=== PATIENT | female | born 1960 | race Caucasian/White ===

== ENCOUNTER 2016-08-17 21:04 | Inpatient (IN) | payer OTHER ==
[~2016-08-17] VITALS: Ht 170.2 cm; Wt 74.6 kg
[~2016-08-17 21:04] MED LIST: BENZ1LOZ60 MM; IBUP800T28 PO; LETR2.5T4 PO; LORA2TAB PO; ONDA-53 PO; OXYC-465 PO; OXYC20TA55 PO; PANT20TA2 PO; [UNRECOGNIZED DRUG - OTHER]; [UNRECOGNIZED DRUG - OTHER] PO
[2016-08-17 21:35] VITALS: BP 114/75; PULSE 101; RESP 22; O2SAT 100
--- NOTE | 2016-08-17 21:54 | ED.REPORT ---
HPI-Fever Date of Service Aug 17, 2016 ED Provider: Carmelo Bryant DO 56 year old female with a history of breast cancer with mets to bones presents to the ER accompanied by her complaining of fever, high of 101F measured at home. Patient denies , vomiting, diarrhea, and dysuria. She also reports that she recently fell and broke her left humerus, and is scheduled for surgery at on 08/21/16. Currently on both radiation and chemotherapy treatments. She does have a mild cough. Nursing Notes Stated Complaint: FEVER,CANCER PATIENT Chief Complaint: General Complaint Nursing Notes Reviewed: Yes Allergies: Uncoded Allergies: STEROID (Allergy, Severe, edema to throat, 08/17/16) Scheduled ([kisquali]) 600 MG PO DAILY take 600mg tab daily for 21 days of 28 days Letrozole (Letrozole) 2.5 Mg Tablet 2.5 MG PO DAILY Oxycodone ER (Oxycontin) 20 Mg Tab.er.12h 20 MG PO TID Pantoprazole DR (Pantoprazole DR) 20 Mg Tablet.dr 20 MG PO BID Scheduled PRN Benzocaine/Menthol (Cepacol Sore Throat Lozenge) 1 Each Lozenge 1 EACH MM DIRECTED PRN PRN sore throat Lorazepam (Lorazepam) 2 Mg Tablet 2 MG PO HS PRN PRN For Insomnia Ondansetron (Ondansetron) 4 Mg Tablet 4 MG PO DAILY PRN PRN For Nausea/Vomiting oxyCODONE-Acetaminophen 7.5-325 mg (oxyCODONE-Acetaminophen 7.5-325 mg) 1 Each Tablet 1-2 TAB PO Q4H PRN PRN For Pain General Time Seen by MD: 21:54 Chief Complaint Fever currently Hx Obtained From: Patient Arrived By: Walk-in Past Medical History Past Medical History Left breast cancer with mets to bone Anxiety History of kidney stones Past Surgical History Left mastectomy Smoking History Current Every Day Smoker, Light Tobacco Smoker Social History Alcohol Use: Denies alcohol use Drug Use: Denies drug use Other Social History: Good social support Review of Systems Constitutional: Reports: Fever Respiratory: Denies: Non-productive cough, Shortness of breath Cardiovascular: Denies: Chest pain GI: Denies: Abdominal pain, Diarrhea, Nausea, Vomiting Complete sys rev & neg: except as marked. Physical Exam Initial Vital Signs Vital Signs (First) Date Time Temp Pulse Resp B/P Pulse Ox O2 Delivery O2 Flow Rate FiO2 08/17/16 21:35 36.9 101 22 114/75 100 Room Air Initial VS: Reviewed Head / Eyes: Atraumatic, Normocephalic Abdomen / GI: Soft, Non-tender, No guarding, No rebound, No distention Psychiatric: Mood/affect normal, Behavior normal, Normal thought content General/Constitutional: Awake, Alert, Well developed Neck: Supple, No meningismus, Full range of motion, No adenopathy, No swelling , Non-tender, No masses Respiratory / Chest: No respiratory distress, No wheezing, No retractions, No stridor Rales / Rhonchi: Positive: Rales R up to 1/3 Breast: Negative: Erythema L, Erythema R Cardiovascular: Regular rhythm, No murmurs, No rubs Heart Rate / Rhythm: Positive: Tachycardia Skin: Warm, Intact Color / Condition: Positive: Diaphoresis present Neurologic: Oriented X3, Speech NL, No motor deficits, No sensory deficits Interpretation & Diagnostics Lab Results Interpretation Result Diagram: 08/18/16 0620 08/18/16 0620 Test 08/17/16 22:15 08/17/16 22:45 Lactic Acid Level 1.5mmol/L (0.4-2.0) Procalcitonin 0.09ng/mL (0.00-0.08) X-Ray Chest Interpretation Chest Xray Interpretation: Opacity in the right upper chest. View: AP & lat Interpretation / Wet Read by: Wet read ED physician Re-Eval/Medical Decision Med Decision/Clinical Course This is a very pleasant 56-year-old female who unfortunately suffering with metastatic breast cancer. She has undergone extensive radiation as well as oral chemotherapy. Today she developed a fever of 101. So states symptoms including severe bone pain and a cough. On examination she was tachycardic and mildly tachypneic. She was mildly ill in appearance. Skin was reassuring without evidence of cellulitis. Neck was supple without evidence of meningitis. She does have rales in the right upper lobe. Remainder of her exam was normal. Abdomen was soft and nontender. White blood cell count is reassuring without evidence of neutropenia. Pro-calcitonin was mildly elevated. Chest x-ray shows no opacity in the right upper lobe. Evidently she has prior radiation scarring. However she certainly has signs and symptoms consistent with pneumonia. Taking into account her comorbidities we will treat this as healthcare associated pneumonia. IV Zosyn, levofloxacin will be ordered. Plan for hospital admission for follow-up on the blood cultures and clinical progression and pain control. Source of Hx: Old records Re-Evaluation/Progress #1: Time of Eval: 00:12 Re-Evaluation/Progress Note: Discussed lab and imaging results and need for admission. Patient is amenable to the plan. All other questions addressed. Re-Evaluation/Progress #2: Time of Eval: 01:59 Re-Evaluation/Progress Note: Patient is coughing. Discussed need for transfer to [facility]. Patient agrees to the plan pending approval by her oncologist, Dr. Esparza. Re-Evaluation/Progress #3: Time of Eval: 02:13 Re-Evaluation/Progress Note: Informed patient that a hospital bed has become available. She is amenable to the plan for admission. All other questions addressed. Counseled Regarding: Diagnosis, Lab results, Need for admission Discharge & Departure Impression: Primary Impression: Pneumonia Pneumonia type: due to unspecified organism Laterality: right Lung location : upper lobe of lung Qualified Code: J18.1 - Lobar pneumonia, unspecified organism Additional Impression: Breast cancer metastasized to bone Laterality: left Qualified Code: C50.912 - Malignant neoplasm of unspecified site of left female breast Disposition: ADMITTED TO HOSPITAL Discharge Condition All VS Reviewed: Yes Condition: Stable Referrals: Shaina Napier MD (PCP) Long Esparza MD Attestation Portions of this note were transcribed by Radha Goodman. I, Dr. Bryant, personally performed the history, physical exam and medical decision-making; I reviewed and confirmed the accuracy of the information in the transcribed note. Signed by: Jai Harrell, 08/17/2016 and 02:14 copies to: Long Esparza MD; Shaina Napier MD, Todd P DO Aug 17, 2016 21:54 RADHA GOODMAN Aug 17, 2016 22:03 0.5mg/dL (0.0-1.2) Aspartate Amino Transf (AST/SGOT) 49U/L (0-50) Alanine Aminotransferase (ALT/SGPT) 19U/L (0-32) Alkaline Phosphatase 278U/L (25-150) Total Protein 6.9g/dL (6.4-8.4) Albumin 2.9g/dL (3.4-5.0) Procalcitonin 0.10ng/mL (0.00-0.08) X-Ray Chest Interpretation Chest Xray Interpretation: Opacity in the right upper chest. View: AP & lat Interpretation / Wet Read by: Wet read ED physician Re-Eval/Medical Decision Med Decision/Clinical Course This is a very pleasant 56-year-old female who unfortunately suffering with metastatic breast cancer. She has undergone extensive radiation as well as oral chemotherapy. Today she developed a fever of 101. So states symptoms including severe bone pain and a cough. On examination she was tachycardic and mildly tachypneic. She was mildly ill in appearance. Skin was reassuring without evidence of cellulitis. Neck was supple without evidence of meningitis. She does have rales in the right upper lobe. Remainder of her exam was normal. Abdomen was soft and nontender. White blood cell count is reassuring without evidence of neutropenia. Pro-calcitonin was mildly elevated. Chest x-ray shows no opacity in the right upper lobe. Evidently she has prior radiation scarring. However she certainly has signs and symptoms consistent with pneumonia. Taking into account her comorbidities we will treat this as healthcare associated pneumonia. IV Zosyn, levofloxacin will be ordered. Plan for hospital admission for follow-up on the blood cultures and clinical progression and pain control. Source of Hx: Old records Re-Evaluation/Progress #1: Time of Eval: 00:12 Re-Evaluation/Progress Note: Discussed lab and imaging results and need for admission. Patient is amenable to the plan. All other questions addressed. Re-Evaluation/Progress #2: Time of Eval: 01:59 Re-Evaluation/Progress Note: Patient is coughing. Discussed need for transfer to [facility]. Patient agrees to the plan pending approval by her oncologist, Dr. Esparza. Re-Evaluation/Progress #3: Time of Eval: 02:13 Re-Evaluation/Progress Note: Informed patient that a hospital bed has become available. She is amenable to the plan for admission. All other questions addressed. Counseled Regarding: Diagnosis, Lab results, Need for admission Discharge & Departure Impression: Primary Impression: Pneumonia Pneumonia type: due to unspecified organism Laterality: right Lung location : upper lobe of lung Qualified Code: J18.1 - Lobar pneumonia, unspecified organism Additional Impression: Breast cancer metastasized to bone Laterality: left Qualified Code: C50.912 - Malignant neoplasm of unspecified site of left female breast Disposition: ADMITTED TO HOSPITAL Discharge Condition All VS Reviewed: Yes Condition: Stable Referrals: Shaina Napier MD (PCP) Long Esparza MD Attestation Portions of this note were transcribed by Radha Goodman. I, Dr. Bryant, personally performed the history, physical exam and medical decision-making; I reviewed and confirmed the accuracy of the information in the transcribed note. Signed by: Jai Harrell, 08/17/2016 and 02:14 copies to: Long Esparza MD; Shaina Napier MD, Todd P DO Aug 17, 2016 21:54 RADHA GOODMAN Aug 17, 2016 22:03
[2016-08-17] MEDS ORDERED: HYDROmorphone 0.5 mg/0.5 mL iSecure Syringe IVPUSH PRN (21:55)
[2016-08-17] MEDS ORDERED: 0.9% Sodium Chloride 1,000 ML IV ONE (21:55)
[2016-08-17 22:26] LABS: BASOPHILS % (AUTO) 0.4 % (0-3); EOSINOPHILS % (AUTO) 0.8 % (0-5); MONOCYTES % (AUTO) 16.1 % (4-12); Mean Corpuscular Hemoglobin 30.8 pg (27.0-35.0); Mean Corpuscular Volume 96.1 fL (81-100); NEUTROPHILS % (AUTO) 70.4 % (40-74); Platelet Count 247 bil/L (150-400)
[2016-08-17 23:00] VITALS: BP 118/73; PULSE 74; RESP 16; O2SAT 98
[2016-08-18] VITALS (7 sets, daily range): BP systolic 120–170; BP diastolic 64–93; PULSE 80–88; RESP 16–17; O2SAT 95–98
[2016-08-18] MEDS ORDERED: Piperacillin-Tazo 3.375 Gm Inj 3.375 GM in Dextrose 5% Minibag Plus 50 ML IV ONE (00:15)
[2016-08-18] MEDS ORDERED: levoFLOXacin Inj 750 MG in IV Premix 1 EACH IV ONE (01:55)
[2016-08-18] MEDS ORDERED: 0.9% Sodium Chloride 1,000 ML IV SCH (02:44)
[2016-08-18] MEDS ORDERED: Polyethylene Glycol (PEG) 17 Gm Powder PO PRN (02:45)
[2016-08-18] MEDS ORDERED: Alum-Mag Hydrox-Simeth 30 mL Suspension PO PRN (02:45)
[2016-08-18] MEDS ORDERED: Albuterol 2.5 mg/3 mL Inhalation Solution NEB PRN (02:45)
[2016-08-18] MEDS ORDERED: Ondansetron 2 mg/mL 2 mL Inj IVPUSH ONE (03:40)
--- NOTE | 2016-08-18 03:59 | PCM.HPMED ---
Subjective Date of Service Aug 18, 2016 Primary Provider: Admitting Physician: Primary Care Physician: Shaina Napier MD Attending Physician: Admit Status: From the Emergency Department Chief Complaint: Health Care Acquired Pneumonia History of Present Illness: Pleasant 56yo woman with metastatic breast cancer followed at , s/p double radical mastectomy, with metasteses affecting multiple bones including her skull and both legs, pneumonia x4 in the last two years, presents with fever and cough since yesterday. The fever has been as high as 101 at home and her cough is mildly productive of yellowish sputum. She was admitted for HCAP evaluation and treatment. She was given doses of Levofloxacin 750mg IV and Zosyn 3.375mg IV in the ER. She feels hot all the time, even before these fevers, has pain with deep breaths , has a mild headache, chronic nausea, and chronic pain in her bones where there are cancer mets. She denies nasal congestion, hemoptysis, sore throat, abdominal pain, dysuria, diarrhea, and constipation. She has also had a broken left proximal humerus for a month that will be repaired next week. She reports the repair had to wait for her to be done with radiation treatment. She is currently on Letrozole cancer chemotherapy, finished a round of radiation last Sunday, and will start Kisquali, another new drug for breast cancer after the orthopedic repair of her humerus. Knowing she is immune suppressed and having had multiple bouts of pneumonia since getting breast cancer she did not wait to get sicker to come in for treatment. Her CXR tonight shows an opacity in the right upper field that could be pneumonia but is possibly related to radiation damage, there are no pleural effusions. She reports her cancer pain is well managed with Oxycontin 20mg PO TID and Oxycodone-acetaminophen 7.5/325mg 1-2 tablets daily PRN for breakthrough pain, usually needing less than 1 tablet daily. Review of Systems: 14point ROS is negative except as noted above in the HPI. Allergies Coded Allergies: No Known Allergies (Unverified Allergy, Unknown, 09/11/14) Uncoded Allergies: STEROID (Allergy, Severe, edema to throat, 08/17/16) Home Medications Scheduled medications: ([kisquali]) 600 MG PO DAILY take 600mg tab daily for 21 days of 28 days to start next Sunday Letrozole (Letrozole) 2.5 Mg Tablet 2.5 MG PO DAILY Oxycodone ER (Oxycontin) 20 Mg PO TID Pantoprazole DR (Pantoprazole DR) 20 Mg PO DAILY PRN medications: Benzocaine/Menthol (Cepacol Sore Throat Lozenge) 1 Each Lozenge 1 EACH MM DIRECTED PRN PRN sore throat Lorazepam (Lorazepam) 2 Mg Tablet 2 MG PO HS PRN PRN For Insomnia and Anxiety Ondansetron (Ondansetron) 4 Mg Tablet 4 MG PO DAILY PRN For Nausea/Vomiting oxyCODONE-Acetaminophen 7.5-325mg 1-2 TAB PO Q4H PRN For Pain PMH Left breast cancer with mets to bone Anxiety History of kidney stones Chronic Hypotension Surgical History Double Mastectomy Shoulder repair Tubal Ligation Family History unknown, patient is adopted Social History Hx Alcohol Use: Yes (socially) Hx Substance Use: No Hx Tobacco Use: Yes Smoking Status: Current Every Day Smoker (1/2 ppd), Light Tobacco Smoker Living Arrangement: with Family Exam Vital Signs Vital Sign - Last Date Time Temp Pulse Resp B/P Pulse Ox O2 Delivery O2 Flow Rate FiO2 08/18/16 02:40 36.9 80 16 120/64 98 Room Air Intake and Output 08/17/16 08/17/16 08/18/16 Cumulative From/Thru 15:00 23:00 07:00 08/17/16 21:35 - 08/17/16 22:32 Intake Total 1200 ml 1200 ml Balance 1200 ml 1200 ml Intake IV Total 1200 ml 1200 ml Exam General: Alert, Oriented X3, Cooperative, No Acute Distress Head: Normocephalic, atraumatic. External ears normal. Eyes: PERRLA, EOMI. Anicteric sclerae. Mouth: Mouth Normal, Mucous Membranes Moist/[place] Neck: Neck supple with full range of motion. Chest & Lungs: Clear to auscultation bilaterally with no crackles, wheezes, or rhonchi. Bilateral mastectomy scars, well healed. Cardiovascular: Regular Rate/Rhythm, Normal S1, Normal S2, No Murmurs/Rubs/ Gallops Abdomen: Non-tender, Non-distended, No masses, Normoactive bowel tones, Soft Musculoskeletal: Normal Range of Motion Extremities: No cyanosis/clubbing/edema bilaterally Neurological: Grossly Neurologically Intact, Cranial Nerves 2-12 Intact, Normal Speech Lab and Diagnostics Labs Laboratory Tests Test 08/17/16 22:15 08/17/16 22:45 White Blood Count 5.3th/mm3 (3.8-10.1) Red Blood Count 3.89mil/mm3 (3.90-5.20) Hemoglobin 12.0g/dL (12.0-15.6) Hematocrit 37.4% (35.0-46.0) Mean Corpuscular Volume 96.1fL (81-100) Mean Corpuscular Hemoglobin 30.8pg (27.0-35.0) Mean Corpuscular Hemoglobin Concent 32.1% (32.0-37.0) Red Cell Distribution Width 16.4% (12.3-15.4) Platelet Count 247bil/L (150-400) Neutrophils (%) (Auto) 70.4% (40-74) Lymphocytes (%) (Auto) 11.0% (14-46) Monocytes (%) (Auto) 16.1% (4-12) Eosinophils (%) (Auto) 0.8% (0-5) Basophils (%) (Auto) 0.4% (0-3) Sodium Level 135mEq/L (134-144) Potassium Level 4.1mEq/L (3.5-5.2) Chloride Level 98mEq/L (97-108) Carbon Dioxide Level 23mmol/L (18-29) Blood Urea Nitrogen 7mg/dL (6-24) Creatinine 0.33mg/dL (0.57-1.00) Estimat Glomerular Filtration Rate 296mL/min (>59) Glucose Level 133mg/dL (60-99) Lactic Acid Level 1.5mmol/L (0.4-2.0) Calcium Level 8.7mg/dL (8.5-10.1) Total Bilirubin 0.5mg/dL (0.0-1.2) Aspartate Amino Transf (AST/SGOT) 49U/L (0-50) Alanine Aminotransferase (ALT/SGPT) 19U/L (0-32) Alkaline Phosphatase 278U/L (25-150) Total Protein 6.9g/dL (6.4-8.4) Albumin 2.9g/dL (3.4-5.0) Procalcitonin 0.10ng/mL (0.00-0.08) 0.09ng/mL (0.00-0.08) Microbiology 08/17/16 Blood Culture, Received Pending Result Diagram: 08/17/16 2215 08/17/16 2215 Microbiology Blood cultures pending X-Rays, CTs and MRIs CXR showing 3cm round opacity in the right upper field, read by myself, Dr Coleman , R3 Xray of left arm reveals non-displaced, closed fracture of proximal humerus, read by myself, Dr Coleman, R3 Assessment & Plan 56yo woman under treatment with chemo and radiation for breast cancer with bone metasteses, s/p double mastectomy, proximal humerus fracture present for one month which is scheduled for orthopedic repair on 08/21 presenting with cough and fever for one day. As she is immune suppressed, undergoing chemo and radiation this will be treated as HCAP. Levofloxacin and Zosyn were started in the ER along with NS 100mls/hr IV. She reports her cancer pain and broken arm pain has been well controlled with her oral narcotics. Sepsis, acute, POA -HR>90, RR >20 -HCAP -treatment as below 1. HCAP, POA, secondary to immune suppression from chemotherapy, CXR not yet read by radiology, but does have an opacity in the upper right lobe, no effusions. -Continue antibiotics started in the ER for HCAP: Zosyn 3.375 gm IV q8h and [id number] IV daily. -NS 100mls/hr IV -Urine antigens for Legionella and Strep Pneumo ordered -MRSA swab ordered -Viral PCR ordered -Sputum culture ordered -trend procalcitonin -CBC w/ diff and CMP in morning 2. Breast cancer with bone metasteses, POA, under treatment with radiation and chemotherapy -Continue Letrozole 2.5mg PO daily -for pain control, continue home narcotic regimen: Oxycontin 20mg PO TID Oxycodone-acetaminophen 10-325mg PO 1-2 tabs q4h PRN for breakthrough pain ( home dose is oxycodone 7.5, not on our formulary) 3. Right Humerus Fracture, POA, scheduled for repair on 08/21/16, immobilized in splint. -surgery was deferred to 08/21/16 secondary to completion of a round of radiation therapy 4. Tobacco Abuse, POA, 1/2 ppd for many years -Nicotine 14mg/24h Patch daily 5. Elevated Alk Phos at 278, POA, likely secondary to bone mets, but also possible side effect of Letrozole. PRN medications available for nausea, heartburn, constipation: Ondansetron, Maalox, Senna, Miralax Diet: General Patient status: patient was admitted under inpatient status with expected elngth of stay greater than 2 midnights due to severity of presenting symptoms, risk of adverse event, and complexity of treatment plan. Pain Evaluation: Adequate Pain Control VTE Prophylaxis: Sub-Q Heparin (Unfractionated) Resuscitation Status: CPR: Attempt Resuscitation Attending Statement The patient was seen and examined together with house staff on 08/18/2016 and I have added additional information to the note above. Negrito Coleman DO Aug 18, 2016 03:59 Mis Powell DO Aug 18, 2016 06:23
--- NOTE | 2016-08-18 05:51 | NUR ---
Arrival to Unit Patient arrived to floor at 0445 from ED via gurney. Patient A&OX3 and pleasant; able to ambulate to hospital bed with SBA. Complains of 5/10 left arm pain from broken humerus, and 5/10 R leg pain with activity. Denies any SOB, or CP. IV fluids NS @ 100cc/hr have been started through dre-cath, and tele monitor has been notified of patients arrival; waiting for tele box. Patient is on room air and resting comfortably; is in the room. Care continues.
[2016-08-18 06:39] LABS: BASOPHILS % (AUTO) 0.3 % (0-3); EOSINOPHILS % (AUTO) 0.5 % (0-5); Mean Corpuscular Hemoglobin 30.4 pg (27.0-35.0); Mean Corpuscular Volume 97.3 fL (81-100); NEUTROPHILS % (AUTO) 69.4 % (40-74); Platelet Count 205 bil/L (150-400)
--- NOTE | 2016-08-18 08:00 | PCM.PNMED ---
Subjective Date of Service Aug 18, 2016 Subjective Feeling better, not aware of any fever since admission, cough significantly decreased and is now minimal. She is now back to her usual chronic pain from her metastatic cancer, the new and worsening chest and back pain prior to admission has resolved. Exam Vital Signs Vital Sign - Last Date Time Temp Pulse Resp B/P Pulse Ox O2 Delivery O2 Flow Rate FiO2 08/18/16 06:18 84 08/18/16 04:45 36.8 17 141/78 97 Room Air Intake and Output 08/17/16 08/17/16 08/18/16 Cumulative From/Thru 15:00 23:00 07:00 08/17/16 21:35 - 08/18/16 05:04 Intake Total 1200 ml 1200 ml Balance 1200 ml 1200 ml Intake IV Total 1200 ml 1200 ml Exam General: Alert and oriented, no acute distress Heart: Regular Lungs: Clear anteriorly and laterally Abdomen: Soft, non-tender Extremities: No pedal edema, has splint/sling on left arm IVs and Medications Medications Reviewed: Medications were reviewed in detail Lab and Diagnostics Result Diagram: 08/18/1661908/18/16 0620 Microbiology Blood cultures pending X-Rays, CTs and MRIs CXR showing 3cm round opacity in the right upper field, read by admitting physician, Dr Coleman, R3 Xray of left arm reveals non-displaced, closed fracture of proximal humerus, read by admitting physician, Dr Coleman, R3 Assessment & Plan 56yo woman under treatment with chemo and radiation for breast cancer with bone metasteses, s/p double mastectomy, proximal humerus fracture present for one month which is scheduled for orthopedic repair on 08/21 presenting with cough and fever for one day. As she is immune suppressed, undergoing chemo and radiation this will be treated as HCAP. Levofloxacin and Zosyn were started in the ER along with NS 100mls/hr IV. She reports her cancer pain and broken arm pain has been well controlled with her oral narcotics. # Sepsis, acute, POA, now improved, afebrile and vital signs stable # HCAP, POA, secondary to immune suppression from chemotherapy, CXR not yet read by radiology, but does have an opacity in the upper right lobe, no effusions. - This a.m. she is afebrile (since admission), vital signs stable, and not requiring oxygen, symptomatically much improved -Continue antibiotics started in the ER for HCAP: Zosyn 3.375 gm IV q8h and [id number] IV daily. -NS 100mls/hr IV - DC when taking fluids well -Urine antigens for Legionella and Strep Pneumo pending -MRSA swab pending -Viral PCR pending -Sputum culture ordered -trend procalcitonin - stable -depending on lab test results may be able to go home tomorrow on oral levofloxacin # Anemia, hemoglobin has dropped from 12.0 on admission to 10.2, most likely related to IV fluids with underlying chronic anemia due to cancer treatment -We will recheck in the morning # Mildly elevated fasting glucose, repeat in the morning # Breast cancer with bone metasteses, POA, under treatment with radiation and chemotherapy -Continue Letrozole 2.5mg PO daily -for pain control, continue home narcotic regimen: Oxycontin 20mg PO TID Oxycodone-acetaminophen 10-325mg PO 1-2 tabs q4h PRN for breakthrough pain ( home dose is oxycodone 7.5, not on our formulary) # Right Humerus Fracture, POA, scheduled for repair on 08/21/16, immobilized in splint. -surgery was deferred to 08/21/16 secondary to completion of a round of radiation therapy # Tobacco Abuse, POA, 1/2 ppd for many years -Nicotine 14mg/24h Patch daily # Elevated Alk Phos at 278, POA, likely secondary to bone mets, but also possible side effect of Letrozole. -Repeat this a.m. is stable PRN medications available for nausea, heartburn, constipation: Ondansetron, Maalox, Senna, Miralax Diet: General Pain Evaluation: Adequate Pain Control VTE Prophylaxis: Sub-Q Heparin (Unfractionated) VTE Mechanical Devices: Intermittant Pneumatic CD Resuscitation Status: CPR: Attempt Resuscitation Nina Morales MD Aug 18, 2016 08:00
--- NOTE | 2016-08-18 08:25 | DRSVH ---
PROCEDURE: X-RAY CHEST, TWO VIEWS ([id number]) INDICATIONS: 56 year-old female with breast carcinoma and fevers. TECHNIQUE: 2 views of the chest were acquired. COMPARISON: Merged With [facility], [place], [place] BONE SCAN WHOLE BODY, 05/11/2016, 11:08. [facility] spital, CT, CT NECK CHEST ABD PELVIS W CON, 06/26/2016, 10:59. [facility], CR, XR CHEST 2V AP/PA AND LAT, 05/24/2016, 8:26 PM. [facility], CR, XR CHEST 2V AP/PA AND LAT, 02/20, 10:55 PM. [facility], CR, XR CHEST 2V AP/PA AND LAT, 02/07/2016, 5:56 PM. FINDINGS: Surgical changes and devices: Right chest wall Port-A-Cath is again noted. Lungs and pleura: No pleural effusions or pneumothorax. No acute airspace opacities. There is persi stent wedgelike air space opacity in the lateral right upper lobe. Mediastinum: Mediastinal contours are normal. Heart size is normal. Bones and chest wall: Multiple sclerotic bony metastases are again noted within the thoracic spine. S oft tissues appear unremarkable. IMPRESSION: 1. Persistent wedgelike air space opacity in the lateral right upper lobe may represent confluent sca rring, chronic pneumonia, versus neoplasm. 2. Multiple sclerotic thoracic spine vertebral body metastases again noted. Dictated by: Dane Alexis M.D. on 08/18/2016 at 8:20 Approved by: Dane Alexis M.D. on 08/18/2016 at 8:24
--- NOTE | 2016-08-18 08:27 | DRSVH ---
PROCEDURE: X-RAY LEFT FOREARM, TWO VIEWS ([id number]) INDICATIONS: 56 year-old female with metastatic breast carcinoma and forearm pain. TECHNIQUE: 2 views of the forearm were acquired. COMPARISON: [facility], [place], [place] BONE SCAN WHOLE BODY, 05/11/2016, 11:08. [facility], [place], XR HUMERUS LEFT 2V, 07/25/2016, 10:48 AM. FINDINGS: Bones: No fractures or dislocations. There is incompletely visualized extensive periosteal reaction from previously noted subacute spiral fracture of the left humeral shaft. No suspicious bony lesions . Soft tissues: No suspicious soft tissue calcifications or masses. IMPRESSION: No acute bony injuries of the left forearm. Healing subacute spiral fracture of the left humeral shaft is incompletely visualized. Dictated by: Dane Alexis M.D. on 08/18/2016 at 8:24 Approved by: Dane Alexis M.D. on 08/18/2016 at 8:26
[2016-08-18] MEDS: Sodium Chloride LOK Flush 10 mL Syringe IVFLUSH SCH ×2 (08:30→16:30)
[2016-08-18] MEDS ORDERED: PANT20TA2 PO (09:12)
[2016-08-18] MEDS: oxyCODONE ER 20 mg ER12 Tablet PO SCH ×3 (09:13→21:27)
[2016-08-18] MEDS: Piperacillin-Tazo 3.375 Gm Inj 3.375 GM in Dextrose 5% Minibag Plus 50 ML IV SCH ×2 (09:14→16:50)
[2016-08-18] MEDS: Heparin 5,000 Unit/mL Inj SUBQ SCH ×2 (09:15→16:50)
--- NOTE | 2016-08-18 09:32 | PROG NOTE ---
[address] [address] PROGRESS NOTE PATIENT: KIRILL COATES : 1960 MR#: [id number] ADMIT: 08/18/2016 JOB ID: [id number] DATE: 08/18/2016 SUBJECTIVE: The patient is a 56-year-old woman with metastatic left breast cancer with extensive osseous involvement. Multiple lesions have been irradiated. She recently completed radiation to the left hip. She has been on hormonal therapy with letrozole and ribociclib. She also receives monthly Zometa. She was hospitalized yesterday with pneumonia after presenting with high fever and a worsening cough. Chest x-ray showed persistent right upper lobe scarring/chronic pneumonia. She is scheduled for surgical repair of a left humeral fracture next Sunday at the [facility], and is being aggressively treated for potential infection with Zosyn 3.375 g IV every 8 hours and Levaquin 750 mg IV daily. OBJECTIVE: Vitals: T 36.8, P 80, R 17, BP 141/78. O2 saturation 97% on room air. HEENT: Conjunctivae slightly pale. Mucous membranes dry. No oral lesions. Nodes: No adenopathy in the neck or axilla. Chest: Clear. Cardiac examination: Regular rate and rhythm with normal S1, S2. Abdomen: Soft, nontender. Normoactive bowel tones. Extremities: Left arm is stabilized following recent fracture. Minimal edema in the left hand. 2+ distal pulses. Neuro: 1-2 beats of lateral nystagmus. LABORATORIES: WBC 3.9, hemoglobin 10.2, hematocrit 32.6%, platelets 205,000. Sodium 139, potassium 4.1, BUN 5, creatinine 0.3. Glucose 151. Calcium 7.8. AST 40, ALT 15, alkaline phosphatase 238. Procalcitonin 0.09. Cultures negative to date. ASSESSMENT AND PLAN: 1. T2 N0 M1 (stage IV) poorly differentiated infiltrating ductal carcinoma of the left breast: The patient has extensive skeletal metastases, with multiple courses of radiation therapy to involve bones in the right shoulder, left anterior ribs, lower thoracic spine, hips, left shoulder, cervical spine and clivus. She has been on letrozole 2.5 mg by mouth daily, and has a prescription for ribociclib (Kisqali) to take 21 days of each 28 day cycle. She is not neutropenic, and has adequate hematologic parameters that do not require transfusion support at this time. 2. Possible pneumonitis: Agree with broad-spectrum antibiotic coverage, particularly given her relatively immunosuppressed state and upcoming surgical intervention. 3. Left humeral fracture: Anticipate surgical repair at the [facility] early next week.
[2016-08-18 11:33] LABS: APPEARANCE,URINE HAZY (CLEAR,HAZY); COLOR,URINE STRAW (YELLOW); OCCULT BLOOD,URINE NEGATIVE (NEGATIVE); UROBILINOGEN,URINE NORMAL (NORMAL)
[2016-08-18] MEDS ORDERED: 0.9% Sodium Chloride 250 ML IV SCH (12:06)
[2016-08-18] MEDS ORDERED: Sodium Chloride LOK Flush 10 mL Syringe IVFLUSH PRN (12:10)
[2016-08-18] MEDS ORDERED: Benzocaine-Menthol Lozenge 2/Pkg PO PRN (13:00)
--- NOTE | 2016-08-18 14:14 | NUR ---
RESP Patient states she feels much better than she did when she came to the ER yesterday. Intermittent cough with thin, clear sputum. Denies SOB, remains on RA. Afebrile. 1 person SBA to bathroom. LUE currently with immobilizer and splint in place. Pain controlled with patient's home pain regimen of oxycontin scheduled with PRN percocet. Continue to monitor.
[2016-08-18] MEDS: Pantoprazole 20 mg ER24 Tablet PO SCH (21:27)
[2016-08-18] MEDS ORDERED: Vancomycin Dose per Pharmacist XX SCH (22:20)
[2016-08-18] MEDS ORDERED: Vancomycin Inj 1,500 MG in 0.9% Sodium Chloride 500 ML IV ONE (22:30)
--- NOTE | 2016-08-18 22:50 | NUR ---
Critical Lab Blood culture positive for Staph, reported at 2230. Cook page sent out at 2250 notifying shift mgr hospitalist. Additional broad spectrum ABX ordered and administered. Patient tolerated well, no noted adverse side effects. will continue to monitor.
[2016-08-18] MEDS ORDERED: levoFLOXacin Inj 750 MG in IV Premix 1 EACH IV SCH (23:00)
--- NOTE | 2016-08-18 23:09 | PCM.PHAPRO ---
Progress Date of Service: Aug 18, 2016 Health Care Acquired Pneumonia Vancomycin Management per Pharmacy: Indication: Bacteremia (1 blood culture pos for staph) Goal Trough: 15-20 mg/dL Labs: WBC: 3.9 (however pt on chemo) Procalcitonin: 0.09 Lactic Acid: 1.5 on admission SrCr: 0.3 mg/dL Est CrCl: ~120 mL/min Micro: MRSA nasal screen neg, Resp viral neg, Pneumo urine antigen neg Vitals: All stable Recommendation: Bolus: Vancomycin 1500 mg IV x 1 (~20 mg/kg) Maintenance: 1000 mg IV Q12h (~14 mg/kg) - dosing not aggressive as vitals are stable and pt states improving Vancomycin trough: Draw on 08/21/16 @ 0730 prior to 5th dose. Pharmacy to continue to monitor and adjust dose as needed. Thank You, Shaniqua Dunn, Pharm D. Shaniqua Dunn Aug 18, 2016 23:09
[2016-08-18] MEDS: oxyCODONE-Acetamin 10-325 mg Tablet PO PRN (23:34)
[2016-08-19] MEDS: Sodium Chloride LOK Flush 10 mL Syringe IVFLUSH SCH ×2 (00:30→08:28)
[2016-08-19] MEDS: Piperacillin-Tazo 3.375 Gm Inj 3.375 GM in Dextrose 5% Minibag Plus 50 ML IV SCH ×2 (00:44→08:30)
[2016-08-19] MEDS: Heparin 5,000 Unit/mL Inj SUBQ SCH ×2 (00:44→08:28)
[2016-08-19] MEDS: oxyCODONE-Acetamin 10-325 mg Tablet PO PRN ×2 (03:54→05:44)
[2016-08-19 04:22] LABS: Mean Corpuscular Hemoglobin 30.7 pg (27.0-35.0); Mean Corpuscular Volume 97.3 fL (81-100)
[2016-08-19 06:02] VITALS: BP 119/74; PULSE 80; RESP 16; O2SAT 96
[2016-08-19] MEDS: oxyCODONE ER 20 mg ER12 Tablet PO SCH (08:27)
[2016-08-19] MEDS: Pantoprazole 20 mg ER24 Tablet PO SCH (08:28)
[2016-08-19] MEDS ORDERED: RIBOCICLIB PO SCH (08:30)
[2016-08-19] MEDS ORDERED: Vancomycin 1 Gm/200 mL NS Premix IV SCH (08:30)
--- NOTE | 2016-08-19 12:22 | PCM.DIMED ---
Discharge Instructions Date of Service Aug 19, 2016 Dates of Hospitalization Aug 18, 2016 at 04:07 Discharge Diagnosis Discharge Diagnosis Possible pneumonitis Anemia, hemoglobin has dropped from 12.0 on admission to 10.2, most likely related to IV fluids with underlying chronic anemia due to cancer treatment Mildly elevated fasting glucose Breast cancer with bone metasteses Right Humerus Fracture, scheduled for repair on 08/21/16, immobilized in splint. Tobacco Abuse, POA, 1/2 ppd for many years Elevated Alk Phos Diet No restrictions Activity No restrictions, Other (Continue with left arm in splint/sling) Call your provider Fever or Chills Patient Instructions Follow-up with PCP in: 1 week Follow-up in: 2 weeks (Dr Esparza) Nina Morales MD Aug 19, 2016 12:22
[2016-08-19] MEDS ORDERED: LEVO500T16 PO (12:24)
--- NOTE | 2016-08-19 12:43 | PCM.DC.MED ---
Discharge Summary Date of Service Aug 19, 2016 Dates of Hospitalization Date of Hospital Admission Aug 18, 2016 at 04:07 Date of Discharge: Aug 19, 2016 Providers: Admitting Physician: Mis Powell DO Primary Care Physician: Shaina Napier MD Attending Physician: Mis Powell DO Diagnosis at Time of Discharge Diagnosis at Time of Discharge Possible pneumonitis Anemia, hemoglobin has dropped from 12.0 on admission to 10.2, most likely related to IV fluids with underlying chronic anemia due to cancer treatment Mildly elevated fasting glucose Breast cancer with bone metasteses Right Humerus Fracture, scheduled for repair on 08/21/16, immobilized in splint. Tobacco Abuse, POA, 1/2 ppd for many years Elevated Alk Phos Procedures XRay, CTs & MRIs CXR showing 3cm round opacity in the right upper field, read by admitting physician, Dr Coleman, R3 Xray of left arm reveals non-displaced, closed fracture of proximal humerus, read by admitting physician, Dr Coleman, R3 Brief History Pleasant 56yo woman with metastatic breast cancer followed at , s/p double radical mastectomy, with metasteses affecting multiple bones including her skull and both legs, pneumonia x4 in the last two years, presents with fever and cough since yesterday. The fever has been as high as 101 at home and her cough is mildly productive of yellowish sputum. She was admitted for HCAP evaluation and treatment. She was given doses of Levofloxacin 750mg IV and Zosyn 3.375mg IV in the ER. She feels hot all the time, even before these fevers, has pain with deep breaths , has a mild headache, chronic nausea, and chronic pain in her bones where there are cancer mets. She denies nasal congestion, hemoptysis, sore throat, abdominal pain, dysuria, diarrhea, and constipation. She has also had a broken left proximal humerus for a month that will be repaired next week. She reports the repair had to wait for her to be done with radiation treatment. She is currently on Letrozole cancer chemotherapy, finished a round of radiation last Sunday, and will start Kisquali, another new drug for breast cancer after the orthopedic repair of her humerus. Knowing she is immune suppressed and having had multiple bouts of pneumonia since getting breast cancer she did not wait to get sicker to come in for treatment. Her CXR tonight shows an opacity in the right upper field that could be pneumonia but is possibly related to radiation damage, there are no pleural effusions. She reports her cancer pain is well managed with Oxycontin 20mg PO TID and Oxycodone-acetaminophen 7.5/325mg 1-2 tablets daily PRN for breakthrough pain, usually needing less than 1 tablet daily. Hospital Course 56yo woman under treatment with chemo and radiation for breast cancer with bone metasteses, s/p double mastectomy, proximal humerus fracture present for one month which is scheduled for orthopedic repair on 08/21 presenting with cough and fever for one day. As she is immune suppressed, undergoing chemo and radiation this will be treated as HCAP. Levofloxacin and Zosyn were started in the ER along with NS 100mls/hr IV. She reports her cancer pain and broken arm pain has been well controlled with her oral narcotics. # Possible Sepsis, acute, POA, now improved, afebrile and vital signs stable # HCAP vs Pneumonitis/Bronchitis (abnormality on chest xray may be chronic, present on prior chest CT), POA, secondary to immune suppression from chemotherapy -Has been afebrile since admission, vital signs stable, and not requiring oxygen , symptomatically much improved, says cough has resolved and she feels back to her usual baseline - antibiotics started in the ER for HCAP: Zosyn 3.375 gm IV q8h and [id number] IV daily were continued -Initially NS 100mls/hr IV -Urine antigens for Legionella and Strep Pneumo negative -MRSA swab negative -Viral PCR negative -Sputum culture with normal celia - procalcitonin - stable - Will DC home on Levaquin 500 mg by mouth each day to complete 1 week course # Anemia, hemoglobin has dropped from 12.0 on admission to 10.2 following day the then 10.4 on the morning of discharge, most likely related to IV fluids with underlying chronic anemia due to cancer treatment # Mildly elevated fasting glucose, 155 on the morning of August 18, then 107 on the morning of discharge # Breast cancer with bone metasteses, POA, under treatment with radiation and chemotherapy -Continue Letrozole 2.5mg PO daily -for pain control, continue home narcotic regimen: Oxycontin 20mg PO TID Oxycodone-acetaminophen 10-325mg PO 1-2 tabs q4h PRN for breakthrough pain ( home dose is oxycodone 7.5, not on our formulary) # Right Humerus Fracture, POA, scheduled for repair on 08/21/16, immobilized in splint. -surgery was deferred to 08/21/16 secondary to completion of a round of radiation therapy # Tobacco Abuse, POA, 1/2 ppd for many years -Nicotine 14mg/24h Patch daily # Elevated Alk Phos at 278, POA, likely secondary to bone mets, but also possible side effect of Letrozole. -Repeat the next morning was stable PRN medications available for nausea, heartburn, constipation: Ondansetron, Maalox, Senna, Miralax Diet: General Exam Vital Signs (Last) Date Time Temp Pulse Resp B/P Pulse Ox O2 Delivery O2 Flow Rate FiO2 08/19/16 06:02 36.8 80 16 119/74 96 Room Air Exam General: Alert and oriented, no acute distress Heart: Regular Lungs: Clear Abdomen: Soft, non-tender Extremities: No pedal edema Test 08/17/16 22:15 08/18/16 06:20 08/18/16 10:40 08/18/16 10:52 Lactic Acid Level 1.5mmol/L (0.4-2.0) Neutrophils (%) (Auto) 69.4% (40-74) Lymphocytes (%) (Auto) 14.8% (14-46) Monocytes (%) (Auto) 14.0% (4-12) Eosinophils (%) (Auto) 0.5% (0-5) Basophils (%) (Auto) 0.3% (0-3) Total Bilirubin 0.4mg/dL (0.0-1.2) Aspartate Amino Transf (AST/SGOT) 40U/L (0-50) Alanine Aminotransferase (ALT/SGPT) 15U/L (0-32) Alkaline Phosphatase 238U/L (25-150) Total Protein 5.3g/dL (6.4-8.4) Albumin 2.7g/dL (3.4-5.0) Urine Legionella pneumophilia Ag Negative (Negative) Urine Color Straw (YELLOW) Urine Appearance Hazy (CLEAR,HAZY) Urine pH 7.0 (5.0-8.0) Urine Specific [place] 1.005 (1.003-1.035) Urine Protein Negativemg/dL (NEG,TRACE) Urine Glucose (UA) Negativemg/dL (NEGATIVE) Urine Ketones Negativemg/dL (NEGATIVE) Urine Occult Blood Negative (NEGATIVE) Urine Nitrite Negative (NEGATIVE) Urine Bilirubin Negative (NEGATIVE) Urine Urobilinogen Normalmg/dL (NORMAL) Urine Leukocyte Esterase Small (NEGATIVE) Urine RBC 0-2/hpf (0-2) Urine WBC 6-10/hpf (0-5) Urine Epithelial Cells Occasional/hpf (NONE-MOD) Urine Crystals None seen (NONE SEEN) Urine Bacteria Few/hpf (NONE-FEW) Urine Hyaline Casts None/lpf (NONE) Urine Granular Casts None seen (NONE SEEN) Urine Waxy Casts None seen (NONE SEEN) Urine Red Blood Cell Casts None seen (NONE SEEN) Urine White Blood Cell Casts None seen (NONE SEEN) Urine Mucus None seen (None Seen) Urine Trichomonas None seen (NONE SEEN) Urine Yeast None (NONE SEEN) Urinalysis Comment None Urine Culture Reflexed Indicated Test 08/19/16 04:00 White Blood Count 3.5th/mm3 (3.8-10.1) Red Blood Count 3.39mil/mm3 (3.90-5.20) Hemoglobin 10.4g/dL (12.0-15.6) Hematocrit 33.0% (35.0-46.0) Mean Corpuscular Volume 97.3fL (81-100) Mean Corpuscular Hemoglobin 30.7pg (27.0-35.0) Mean Corpuscular Hemoglobin Concent 31.5% (32.0-37.0) Red Cell Distribution Width 16.4% (12.3-15.4) Platelet Count 198bil/L (150-400) Sodium Level 134mEq/L (134-144) Potassium Level 4.1mEq/L (3.5-5.2) Chloride Level 100mEq/L (97-108) Carbon Dioxide Level 23mmol/L (18-29) Blood Urea Nitrogen 7mg/dL (6-24) Creatinine 0.44mg/dL (0.57-1.00) Estimat Glomerular Filtration Rate 213mL/min (>59) Glucose Level 107mg/dL (60-99) Calcium Level 8.7mg/dL (8.5-10.1) Procalcitonin 0.09ng/mL (0.00-0.08) Microbiology Results Blood cultures pending Discharge Medications Discharge Medications ([kisquali]) 600 MG PO DAILY (Reported) take 600mg tab daily for 21 days of 28 days Letrozole (Letrozole) 2.5 Mg Tablet 2.5 MG PO DAILY (Reported) Levofloxacin (Levaquin) 500 Mg Tablet 500 MG PO DAILY Prescribed by: BOBY KRAMER MD Oxycodone ER (Oxycontin) 20 Mg Tab.er.12h 20 MG PO TID (Reported) Pantoprazole DR (Pantoprazole DR) 20 Mg Tablet.dr 20 MG PO BID (Reported) As needed Benzocaine/Menthol (Cepacol Sore Throat Lozenge) 1 Each Lozenge 1 EACH MM DIRECTED PRN PRN sore throat (Reported) Lorazepam (Lorazepam) 2 Mg Tablet 2 MG PO HS PRN PRN For Insomnia (Reported) Ondansetron (Ondansetron) 4 Mg Tablet 4 MG PO DAILY PRN PRN For Nausea/Vomiting (Reported) oxyCODONE-Acetaminophen 7.5-325 mg (oxyCODONE-Acetaminophen 7.5-325 mg) 1 Each Tablet 1-2 TAB PO Q4H PRN PRN For Pain (Reported) Followup Plan Discharge Diet: No restrictions Discharge Activity: No restrictions, Other (Continue with left arm in splint/ sling) Follow-up with PCP in: 1 week Follow-up in: 2 weeks (Dr Esparza) Boby Kramer MD Aug 19, 2016 12:43
--- NOTE | 2016-08-19 13:08 | NUR ---
DISCHARGE Patient remained afebrile overnight. Encouraged deep breathing and coughing. Reviewed discharge paperwork with patient and spouse. Gave hard copy RX to patient and told them they could fill it at any pharmacy. Patient verbalized understanding. Got dressed with assistance from . Transferred into wheelchair and taken outside to personal vehicle. Patient left with all personal belongings.
--- NOTE | 2016-08-19 13:22 | NUR ---
Social Work-screening/discharge: Data:EMR reviewed. Pt is a 56 y/o female who was admitted on 08/18/16 for pneumonia per H&P. pt is medically stable for discharge. Pt resides at home with her . Pt has been up independent in her room. No discharge needs identified. All updated and agreeable to plan. Assessment:Pt who is independent at baseline. Plan:Pt to discharge home toady via POV. No discharge needs identified. All updated and agreeable to plan. SCHUYLER Nelson
[2016-08-21] MEDS ORDERED: Vancomycin Serum Trough XX ONE (07:30)
[2016-08-22] MEDS ORDERED: RIBOCICLIB PO SCH (08:30)
[2016-08-24] MEDS ORDERED: shower chair (08:59)
[2016-08-24] MEDS ORDERED: [UNRECOGNIZED DRUG - OTHER] (08:59)
[2016-09-07] MEDS ORDERED: DOCO200C5 PO (13:49)
== END 2016-08-19 13:00 | disposition home or self-care (01) | DRG 194 ==
LOC: SED 21:04 → OSC 08-18 04:07
PROVIDERS: ADMIT Internal Medicine; ATTEND Internal Medicine
DX: J18.9 Pneumonia, unspecified organism (principal); C79.51 Secondary malignant neoplasm of bone; D84.9 Immunodeficiency, unspecified; D05.12 Intraductal carcinoma in situ of left breast; Z92.3 Personal history of irradiation; Z92.21 Personal history of antineoplastic chemotherapy; Z90.13 Acquired absence of bilateral breasts and nipples; F17.210 Nicotine dependence, cigarettes, uncomplicated; S42.342D Displaced spiral fracture of shaft of humerus, left arm, subsequent encounter for fracture with routine healing; D63.0 Anemia in neoplastic disease; J70.0 Acute pulmonary manifestations due to radiation